=== PATIENT | female | born 1950 | race Caucasian/White ===

== ENCOUNTER 2023-04-02 10:53 | Emergency (ER) | payer MEDICARE, SELFPAY ==
[2023-04-02 11:03] VITALS: BP 151/70; PULSE 78; RESP 18; TEMP 36.6; O2SAT 95; BMI 26.4
--- NOTE | 2023-04-02 11:31 | CRLHL7_ITS ---
For Patients: As a result of the 21st Century Cures Act, medical imaging exams and procedure reports are released immediately into your electronic medical record. You may view this report before your referring provider. If you have questions, please contact your health care provider. INDICATION: Right-sided abdominal pain COMPARISON: None TECHNIQUE: CT examination of the abdomen and pelvis was performed following the uneventful intravenous administration of 59 cc of Isovue 370. Thin section axial images were obtained from the lung bases through the pubic symphysis. Oral contrast was not administered. Please note that all CT scans at this facility use dose modulation, iterative reconstruction, and/or weight-based dosing when appropriate to reduce radiation dose to as low as reasonably achievable. FINDINGS: LUNG BASES: Scant linear opacities consistent with atelectasis. Heart size is normalat the lung bases LIVER/BILIARY SYSTEM:The liver is normal in size and configuration. There is no focal mass and there is no intra- or extra hepatic biliary ductal dilatation.Surgically absent gallbladder ADRENALS: Normal KIDNEYS, URETERS and BLADDER:Right renal cyst. Kidneys are otherwise unremarkable. No obstructive uropathy. The bladder appears normal SPLEEN:Surgically absent spleen PANCREAS: Low-density 1 centimeter lesion involving the junction of the pancreatic body and tail. These lesions usually prove to be benign. In general, these are best evaluated by multiphase MRI. RETROPERITONEUM and MESENTERY: There is no mass, adenopathy or aortic aneurysm. GASTROINTESTINAL SYSTEM: There is no evidence of diverticulitis, colitis, mechanical obstruction, or appendicitis. The small bowel as visualized appears normal.Fecal retention. Diverticulosis. No acute appearing GI finding PELVIS: No mass, adenopathy or free fluid. OSSEOUS STRUCTURES and ABDOMINAL WALL: Degenerative changes. No acute appearing osseous finding. No significant abdominal wall defect. OTHER: No free fluid or free air. IMPRESSION: 1. There is no specific visible cause for right-sided abdominal pain. 2. 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 3. There is a low-density 1 centimeter lesion involving the junction of the pancreatic body and tail. These are generally best evaluated and stratified for follow-up by MRI. 4. Other incidental nonacute appearing findings as above Please note that all CT scans at this facility use dose modulation, iterative reconstruction, and/or weight-based dosing when appropriate to reduce radiation dose to as low as reasonably achievable. Dictated by Candelario Miles MD @ 04/02/2023 2:03:56 PM (Electronically Signed)
--- NOTE | 2023-04-02 11:33 | ED.ABDPAIN ---
HPI - Abdominal Pain General Chief Complaint: Abdominal Pain Stated Complaint: Lower R abdominal pain Time Seen by Provider: 04/02/23 11:21 History of Present Illness HPI narrative: This 72-year-old female has been having intermittent abdominal pain that started more than a couple weeks ago. Her pain is become more constant recently. She has had her spleen, gallbladder, and appendix removed in 1985. She reports pain in the right abdomen. She is able to take food and drink without any increased symptoms. She has not had any nausea, vomiting, or diarrhea except for 1 episode of small emesis about 5 days ago. She does not report any fevers. Related Data Home Medications Medication Instructions Recorded Confirmed alendronate 70 mg tablet mg PO 04/02/23 Allergies Allergy/AdvReac Type Severity Reaction Status Date / Time No Known Drug Allergies Allergy Verified 04/02/23 11:03 Review of Systems Status of ROS Reports: 10 or more systems reviewed and unremarkable except as noted in History and below Narrative Constitutional: No fevers, no weight gain or loss. Eyes: No discharge. No vision changes. HENT: No congestion, no sore throat, no ear pain. Cardiovascular: No chest pain, no palpitations. Respiratory: No shortness of breath, no wheezes, no cough. Gastrointestinal: Right-sided abdominal pain as described above. Genitourinary: No dysuria, no hematuria. Musculoskeletal: Normal range of motion. Skin: No rashes, no pruritis. Neurological: No dizziness, weakness, sensory change, speech change. Endo/Heme/Allergies: No bruising or bleeding. No polydipsia. Pysch: no suicidality, no anxiety, no insomnia. All other systems reviewed and are negative. [facility] Social History Smoking Status: Never smoker Do you use any of these nicotine containing products: None Second hand tobacco smoke exposure: No How often do you have a drink containing alcohol: monthly or less How many standard drinks containing alcohol do you have on a typical day: 1 or 2 How often do you have six or more drinks on one occasion: Never AUDIT-C Alcohol total score: 1 Non-prescribed substance use: denies use service: No Exam Narrative: Exam Narrative: Constitutional: Well-developed, well-nourished, no acute distress. HEENT: Normocephalic, atraumatic. Neck: Normal range of motion. Nontender. Supple. Heart: Regular. No murmurs. Normal rate. Intact distal pulses. Lungs: Clear to auscultation. No chest discomfort. No wheezes, rhonchi, or rales. Abdomen: Decreased bowel sounds. Tenderness in the right abdomen. No rebound tenderness. Genitalia: Deferred. Back: No midline tenderness. Normal range of motion. Extremities: Normal range of motion. No injury. Skin: Intact. No rash. Warm. No erythema or pallor. Neurologic: No altered sensation. No weakness. Alert and oriented. Psychiatric: No suicidality. No anxiety or depression. No insomnia. Nursing notes and vitals signs are reviewed. Const: Vital Signs, click to edit/add: Vital Signs - 24 hr 04/02/23 11:03 04/02/23 14:27 Temperature 98 F Pulse Rate 65 Pulse Rate [Pulse Oximeter] 78 Respiratory Rate 18 18 Blood Pressure 122/63 Blood Pressure [Le ft Upper Arm] 151/70 H Pulse Oximetry 95 96 Oxygen Delivery Me thod Room Air Room Air Course Vital Signs Vital signs: Initial Vital Signs Temperature 98 F 04/02/23 11:03 Temperature Source Temporal Artery Scan 04/02/23 11:03 Pulse Rate 78 04/02/23 11:03 Pulse Rhythm Regular 04/02/23 11:03 Respiratory Rate 18 04/02/23 11:03 Blood Pressure 151/70 H 04/02/23 11:03 Blood Pressure Mean 97 04/02/23 11:03 Blood Pressure Position Supine 04/02/23 11:03 Pulse Oximetry 95 04/02/23 11:03 Oxygen Delivery Method Room Air 04/02/23 11:03 Vital Signs Temperature 98 F 04/02/23 11:03 Pulse Rate 78 04/02/23 11:03 Respiratory Rate 18 04/02/23 11:03 Blood Pressure 151/70 H 04/02/23 11:03 Pulse Oximetry 95 04/02/23 11:03 Oxygen Delivery Method Room Air 04/02/23 11:03 Temperature 98 F 04/02/23 11:03 Pulse Rate 65 04/02/23 14:27 Respiratory Rate 18 04/02/23 14:27 Blood Pressure 122/63 04/02/23 14:27 Pulse Oximetry 96 04/02/23 14:27 Oxygen Delivery Method Room Air 04/02/23 14:27 MDM - Abdominal Pain MDM Narrative Medical decision making narrative: This patient comes in with right-sided abdominal pain that is been intermittent and now more recently constant. An IV was established and labs are acquired. These returned with normal results. CT imaging of the abdomen and pelvis with IV contrast also shows no acute findings other than some fecal retention which happens to be in the right side of the abdomen where she is describing her symptoms. These findings are related to the patient and she is encouraged to use [id number] medicines to promote movement of her bowels. She is reassured with these results and is okay to be discharged home. Lab Data Labs: Lab Results 04/02/23 04/02/23 Range/Units 11:42 12:59 WBC 8.57 (4.50-11.00) K/uL RBC 4.38 (4.00-5.20) m/uL Hgb 14.9 (12.0-16.0) gm/dL Hct 40.9 (33.0-51.0) % MCV 93 (80-100) fL MCH 34 (26-34) pg MCHC 36 (32-36) gm/dL RDW Coeff of Patricia 11.6 (11.5-15.5) % Plt Count 492 H (140-440) K/uL Neut % (Auto) 64.9 (42.0-72.0) % Lymph % (Auto) 21.4 (20-44) % [place] % (Auto) 12.3 H (0.0-11.0) % Eos % (Auto) 0.6 (0.0-7.0) % Baso % (Auto) 0.7 (0.0-3.0) % Neut # (Auto) 5.57 (1.7-7.0) K/uL Lymph # (Auto) 1.83 (0.90-2.90) K/uL [place] # (Auto) 1.10 H (0.00-0.90) K/UL Eos # (Auto) 0.05 (0.00-0.50) K/uL Baso # (Auto) 0.06 (0.00-0.30) K/uL Abs Immat Gran (auto) 0.01 (0.00-0.30) K/uL Imm/Tot Granulo (auto) 0.1 % Sodium 138 (135-149) mmol/L Potassium 4.1 (3.6-5.1) mmol/L Chloride 102 (96-114) mmol/L Carbon Dioxide 25 (20-32) mmol/L Anion Gap 11 (7-15) mEq/L BUN 17 (7-30) mg/dL Creatinine 0.6 (0.5-1.5) mg/dL Estimated Creat Clear 45.73 Estimated GFR 97 ml/min Glucose 122 H (60-115) mg/dL Lactate 0.9 (0.5-1.9) mmol/L Calcium 9.6 (8.4-10.6) mg/dL Total Bilirubin 1.1 (0.1-1.5) mg/dL Direct Bilirubin 0.0 (0.0-0.5) mg/dL AST 39 H (12-35) U/L ALT 21 (4-35) U/L Alkaline Phosphatase 45 (40-150) U/L C-Reactive Protein < 0.5 L (0.5-1.0) mg/dL Total Protein 7.4 (6.0-8.3) g/dL Albumin 4.5 (3.3-5.0) g/dL Urine Color Yellow (Yellow) Urine Appearance Clear (Clear) Urine pH 7.0 (5.0-8.5) Ur Specific [place] 1.020 (1.000-1.030) Urine Protein Negative (Negative) Urine Glucose (UA) Negative (Negative) Urine Ketones Negative (Negative) Urine Blood Negative (Negative) Urine Nitrite Negative (Negative) Urine Bilirubin Negative (Negative) Urine Urobilinogen 0.2 (0.2-1.0) Ur Leukocyte Esterase Negative (Negative) Urine RBC 0-2 (0-2) Urine WBC 0-2 (0-5) Ur Squamous Epith Cells None (None-Few) Urine Bacteria None (None) Discharge Plan Discharge Clinical Impression: Abdominal pain Patient Disposition: Home, Self-Care Condition: Stable Additional Instructions: Use [id number] meds for managing regular bowel movements. Follow up with MD or return if worsening symptoms occur. Prescriptions: No Action alendronate 70 mg tablet PO Follow Up/Referrals: Saniya Arzola DO [Primary Care Provider] - Stand Alone Forms[facility] Inst[facility]
[2023-04-02 11:53] LABS: Lactate* 0.9 mmol/L (0.5-1.9)
[2023-04-02 12:04] LABS: Basophils Absolute Auto 0.06 K/uL (0.00-0.30); Basophils Percent Auto 0.7 % (0.0-3.0); Eosinophils Absolute Auto 0.05 K/uL (0.00-0.50); Eosinophils Percent Auto 0.6 % (0.0-7.0); Hematocrit 40.9 % (33.0-51.0); Hemoglobin* 14.9 gm/dL (12.0-16.0); Immature Granulocytes Abs Auto 0.01 K/uL (0.00-0.30); Immature Granulocytes Pct Auto 0.1 %; Lymphocytes Absolute Auto 1.83 K/uL (0.90-2.90); Lymphocytes Percent Auto 21.4 % (20-44); Mean Corpuscular HGB Conc 36 gm/dL (32-36); Mean Corpuscular Hemoglobin 34 pg (26-34); Mean Corpuscular Volume 93 fL (80-100); Monocytes Percent Auto 12.3 % (0.0-11.0); Neutrophils Absolute Auto 5.57 K/uL (1.7-7.0); Neutrophils Percent Auto 64.9 % (42.0-72.0); Platelet Count* 492 K/uL (140-440); RDW Coefficient of Variation % 11.6 % (11.5-15.5); Red Blood Count 4.38 m/uL (4.00-5.20); White Blood Count* 8.57 K/uL (4.50-11.00)
[2023-04-02 12:09] LABS: Slide Review Reflex No
[2023-04-02 12:23] LABS: Chloride* 102 mmol/L (96-114); Potassium* 4.1 mmol/L (3.6-5.1); Sodium* 138 mmol/L (135-149)
[2023-04-02 12:24] LABS: Albumin* 4.5 g/dL (3.3-5.0)
[2023-04-02 12:26] LABS: Anion Gap 11 mEq/L (7-15); Blood Urea Nitrogen* 17 mg/dL (7-30); Carbon Dioxide* 25 mmol/L (20-32); Creatinine* 0.6 mg/dL (0.5-1.5); Est. Creatinine Clearance* 45.73; Estimated Glomerular Filt Rate 97 ml/min
[2023-04-02 12:27] LABS: Alanine Aminotransferase* 21 U/L (4-35); Alkaline Phosphatase* 45 U/L (40-150); Aspartate Amino Transferase* 39 U/L (12-35); Bilirubin Total* 1.1 mg/dL (0.1-1.5); Calcium* 9.6 mg/dL (8.4-10.6); Glucose* 122 mg/dL (60-115); Total Protein* 7.4 g/dL (6.0-8.3)
[2023-04-02 12:35] LABS: C Reactive Protein* < 0.5 mg/dL (0.5-1.0)
[2023-04-02 13:09] LABS: Appearance Urine Clear (Clear); Bilirubin Urine Negative (Negative); Blood Urine Negative (Negative); Color Urine Yellow (Yellow); Glucose Urine Negative (Negative); Ketones Urine Negative (Negative); Leukocyte Esterase Urine Negative (Negative); Nitrite Urine Negative (Negative); Protein Urine Negative (Negative); Urobilinogen Urine 0.2 (0.2-1.0)
[2023-04-02 13:18] LABS: RBC Urine 0-2 (0-2); WBC Urine 0-2 (0-5)
[2023-04-02 14:27] VITALS: BP 122/63; PULSE 65; RESP 18; O2SAT 96
== END 2023-04-02 14:48 | disposition home or self-care (01) ==
PROVIDERS: Emergency Provider Emergency Medicine Emergency Medical Services; PCP Family Medicine
DX: R10.9 Unspecified abdominal pain (principal)
CPT/HCPCS: 36415; 74177; 80048; 80076; 81001; 83605; 85025; 86140; 99284; 99285; Q9967

== ENCOUNTER 2024-01-21 10:30 | Outpatient (RCR) | payer MEDICARE, SELFPAY | END 2024-03-22 15:24 | disposition home or self-care (01) | PROVIDERS: PCP Family Medicine; Visit Provider Family Medicine | DX: M67.912 Unspecified disorder of synovium and tendon, left shoulder (principal); M25.612 Stiffness of left shoulder, not elsewhere classified; Z51.89 Encounter for other specified aftercare; M75.102 Unspecified rotator cuff tear or rupture of left shoulder, not specified as traumatic | CPT/HCPCS: 97110; 97161 ==

== ENCOUNTER 2024-02-24 07:51 | Day surgery (SDC) | payer MEDICARE, SELFPAY ==
[2024-02-24] VITALS (15 sets, daily range): BP systolic 110–146; BP diastolic 61–78; PULSE 66–91; RESP 16–23; TEMP 36.1–36.9; O2SAT 92–96; BMI 24.8
--- OUTSIDE RECORDS SUMMARY | 2024-02-24 07:54 | XMS_ITS | Clinical Summary ---
Author Organization [facility] Address [place], [place] [address] Care Team Providers Care Office Spec Name Role Phone Saniya Arzola Primary Care Provider [phone] Allergies Active Allergy Reactions Criticality Noted Date Comments Antihistamines Dizziness 06/06/2008 Medications Medication Sig Dispensed Refills Start Date End Date Status CENTRUM SILVER TAB take 1 tablet by oral route once daily 0 01/10/2008 Active FISH OIL 1,200 MG-144 MG-216 MG CAP Once daily 0 01/10/2008 Active Grape Seed 100 mg capsule Take 1 capsule by mouth. Takes 3 daily 0 01/24/2011 Active calcium citrate-vitamin d 315 mg-200 unit (CITRACAL + D) 315-200 mg-unit tablet Take 1 tablet by mouth 2 times daily with meals. 0 01/24/2011 Active famotidine (PEPCID) 20 mg tablet Take 1 tablet by mouth once daily. 0 04/17/2020 Active alendronate (FOSAMAX) 70 mg tabletIndications:Oste oporosis, unspecified osteoporosis type, unspecified pathological fracture presence Take 1 Tablet (70 mg) by mouth once a week in the morning. Take on empty stomach with full glass of water. Do not lie down for 1 hr. 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 No further work up needed. Can take aspirin 81mg if no significant GI bleeding RF's Family history of stroke 02/28/2014 Overview: Sister hemorrhagic stroke age 62 Personal history of colonic polyps 05/05/2012 Overview: Colonoscopy 04/2012 normal repeat in 5 years Colonoscopy 06/2017 normal repeat in 5 years Colonoscopy 09/2022 angiodyplasia, no polyps, repeat in 7-10 years GERD (gastroesophageal reflux disease) 1 Overview: EGD 02/2011 reflux Asplenia 06/06/2008 Hereditary spherocytosis 01/01/2007 Urinary tract infection, site not specified 12/05 Osteopenia Overview: 2007 Dexa 04/2017 osteopenia, repeat 3-5yrs Resolved Problems Problem Noted Date Diagnosed Date Resolved Date Unspecified diseases of bloo d and blood-forming organs 01/01/2007 01/24/2011 Encounters Date Type Department Care Team Description 02/17/2024 11:15 AM CDT Office Visit [facility] [address] Saniya Arzola, Preoperative Exam (02/24/24) 02/17/2024 Travel 01/16/2024 Orders Only [facility] [place] [address] Saniya Arzola, <No scans attached> 01/14/2024 11:45 AM CDT Ancillary Procedure [facility] [address] 01/14/2024 Travel 12/23/2023 10:15 AM CDT Ancillary Procedure [facility] [address] 12/23/2023 9:10 AM CDT Office Visit [facility] [address] Saniya Arzola, Shoulder Pain/problem (Left shoulder pain 5 days); Finger Pain/problem (Left thumb and 1st finger numbness on tip, 2 weeks); Derm Problem (Mole on left shoulder irritation from bra strap) 12/23/2023 Travel from Last 3 Months Immunizations Name Administration Dates Next Due COVID-19 vaccine ([employer] 30mcg/0.3mL) PF, MDV 04/22/2021 Influenza, IIV3 (Age >=3 years) 05/28/2005 Influenza, IIV4 04/07/2017,04/08/2016 Influenza, Inactivated AIIV4 (Age 65+ Years) Preserv Free 03/24/2023,04/23/2022,04/22/2021,04/17 Influenza, Inactivated IIV3 (Age 65+ Years) Preserv Free 04/13/2019,04/07/2018 Meningococcal Vaccine (Menomune) 04/01/2013 Pneumococcal Poly,23-Valent (Pneumovax) 04/07/2018,07/21/1997 Pneumococcal conj 13-Valent (Prevnar 13) 04/01/2013,02/04/2013 Td (Age >=7 Years) 07/21/1997 Td, Preservative Free (age >= 7 Years) 7 Tdap 03/11/2007 Zoster (Shingrix-RZV, recombinant) 07/02/2020, Zoster (Zostavax-ZVL, live) 02/04/2013 Family History Medical History Relation Name Comments Arthritis Father gout Diabetes Father Cancer-breast Maternal Aunt Other Mother migraine Stroke Sister 1 non smoker, no diabetes Asthma Sister 2 Cancer-breast Sister 2 Other Sister 2 Migraine Cancer-ovarian No Family History Relation Name Status Comments Father Alive Maternal Aunt Mother Alive Sister 1 Alive Sister 2 Alive Sister 3 Alive Sister 4 Alive Sister 5 Alive Social History Tobacco Use Types Packs/Day Years Used Date Smoking Tobacco: Never Smokeless Tobacco: Never Tobacco Cessation:Counseling Given: Yes Alcohol Use Standard Drinks/Week Comments Yes 6 (1 standard drink = 0.6 oz pur e alcohol) PHQ-2 Answer Date Recorded PHQ-2 TOTAL SCORE 0 05/07/2023 Social Connections Answer Date Recorded Frequency of Communication with Friends and Fami ly 0 05/07/2023 Alcohol Use Answer Date Recorded How often do you have a drink containing alcohol ? 3 04/23/2022 How many drinks containing a lcohol do you have on a typical day when you are drinking? 0 04/23/2022 How often do you have five or more drinks on one occasion? 0 04/23/2022 Financial Resource Strain Answer Date R ecorded Difficulty of Paying Living Expenses 3 05/07/2023 Difficulty of Paying Living Expenses Not on file 05/07/2023 Food Insecurity Answer Date Recorded Worried About Running Out of Food in the Last Ye ar 1 05/07/2023 Transportation Needs Answer Date Record ed Lack of Transportation (Medical) 1 05/07/2023 Housing Stability Answer Date Recorded Unable to Pay for Housing in the Last Year 1 05/07/2023 Sex and Gender Information Value Date Recorded Sex Assigned at Not on file Gender Identity Not on file Sexual Orientation Not on file Obstetrics History Para Term AB IAB SAB Ectopic Multiple Livin g Live Births 0 0 0 0 0 0 0 0 0 0 Last Filed Vital Signs Vital Sign Reading Time Taken Comments Blood Pressure 118/73 02/17/2024 11:18 AM CDT Pulse 77 02/17/2024 11:18 AM CDT Temperature 37.1 ??C (98.8 ??F) 03/05/2015 1:34 PM CD T Respiratory Rate 16 09/04/2022 10:11 AM COATING MIXER SUPERVISOR Oxygen Saturation 96% 02/17/2024 11:18 AM CDT Inhaled Oxygen Concentration - - Weight 55.8 kg (123 lb) 02/17/2024 11:18 AM CDT Height 151 cm (4' 11.45) 02/17/2024 11:18 AM CD T Body Mass Index 24.47 02/17/2024 11:18 AM CDT Plan of Treatment Upcoming Encounters Date Type Department Care Team (Late st Contact Info) Description 05/09/2024 10:25 AM COATING MIXER SUPERVISOR Office Visit [facility] [address] [place] [address] Saniya Arzola DO [address] [place] [address] Health Maintenance Due Date Last Done Comments COVID-19 vaccine series ( season) 2023 04/28/2022, 04/22/2021, 09/29/2020, Additional history exists Influenza for age 65+ 03/06/2024 03/24/2023 , 04/23/2022, 04/22/2021, Additional history exists Depression screening for age 12+ 05/07/2024 05/07/2023, 04/23/2022, 04/23/2022, Additional history exists Mammogram for age 45-75 05/07/2024 05/07/20 23, 04/23/2022, 04/22/2021, Additional history exists Medicare Wellness for age 65+ 05/07/2024, 04/23/2022, 04/22/2021, Additional history exists BMI (ht and wt on same day) for age 18+ 02/16/2025 02/17/2024, 12/23/2023, 05/07/2023, Additional history exists Tetanus booster 04/14/2027 04/14/2017, 12/2006, 07/21/1997 Lipids for age 45-75 05/07/2028 05/07/2023, 04/07/2018, 03/21/2015, Additional history exists Colonoscopy through age 75 09/11/202909/11, 09/04/2022, 06/12/2017, Additional history exists Tdap Completed 03/11/2007 Hepatitis C screening for ag e 18-79 Completed 03/15/2014 Pneumococcal series for age 65+ Completed 04/07/2018, 04/01/2013, 02/04/2013, Additional history exists Zoster (shingles) series for age 50+ Completed 07/02/2020, 05/12/2020, 02/04/2013 DEXA/DXA scan for age 65+ Completed 2021, 04/09/2017, 02/12/2012, Additional history exists Procedures Procedure Name Priority Date/Time Associated Diagnosis Comments MR SHOULDER LEFT WO Routine 01/14/2024 1 2:14 PM CDT Disorder of left rotator cuff Acute pain of left shoulder Decreased range of motion of left shoulder XR SHOULDER 3 VIEWS LEFT Routine 12/23/2023 10:22 AM CDT Disorder of left rotator cuff Acute pain of left shoulder Decreased range of motion of left shoulder LIPID PANEL W REFLEX MEASURED LDL Routine 05/07/2023 12:08 PM CDT Lipid screening XR MAMMO FABIOLA BILAT SCREEN Routine 05/07/2023 9:51 AM CDT Visit for screening mammogram COLONOSCOPY 09/04/2022 8:50 AM COATING MIXER SUPERVISOR XR DXA BONE DENSITY 2 SITES AXIAL Routine 04/28/2022 10:45 AM CDT Osteopenia, unspecified location Other specified disorders of bone density and structure, multiple sites ANTI HCV Routine 03/15/2014 7:25 AM CDT Need for hepatitis C screening test from Last 3 Months or Most Recently Relevant to Health Maintenance Results * MR SHOULDER LEFT WO (01/14/2024 12:14 PM CDT) Anatomical Region Laterality Modality SHOULDER L Magnetic Resonan ce 01/15/2024 8:36 AM CDT Impressions 01/15/2024 8:36 AM CDT 1. Extensive full-thickness tear of rotator interval and supraspinatus extending to the anterior margin of the infraspinatus which has partial tearing. Prominent tendinosis infraspinatus. Prominent tendinosis and irregular high-grade partial tearing subscapularis. 2. Prominent hypertrophic arthrosis AC joint. 3. Avulsion of the biceps anchor and distal retraction from the field of view. 4. Mild glenohumeral osteoarthritis. 5. Small effusion with synovitis between the subacromial/subdeltoid bursa and the glenohumeral joint communicating across the rotator cuff tear. Dictated by Rafat Ordaz MD @ 01/15/2024 8:36:53 AM (Electronically Signed) Narrative 01/15/2024 8:36 AM CDT For Patients: ??As a result of the Century Cures Act, medical imaging exams and procedure reports are released immediately into your electronic medical record. ??You may view this report before your referring provider. ??If you have questions, please contact your health care provider. INDICATION: Decreased range of motion. Acute pain. Rotator cuff disorder suspected. COMPARISON: Plain film 23 December 2023. TECHNIQUE: Axial T1 and PD fat-sat, coronal PD, T2 and PD fat sat and sagittal T2 and T2 fat-sat left shoulder sequences. FINDINGS: Rotator cuff: Full-thickness tear of the supraspinatus retracted proximal from the glenoid with grade 2 to nearly grade 2 muscle atrophy. Full-thickness tearing through the rotator interval. Prominent patchy tendinosis in the infraspinatus with some irregular partial tearing at the anterior margin. No high-grade partial or full-thickness tear. Intact teres minor. Prominent tendinosis and irregular degenerative tearing tapers small caliber indistinct distal subscapularis. Grade 1 to nearly grade 2 muscle atrophy superior bundle. Infraspinatus and teres minor are maintained. Acromioclavicular joint and coracoacromial arch: Curved type 2 gracile acromion. Slight superior subluxation humeral head narrows the acromiohumeral distance to 3 mm. Small volume of fluid and some synovitis in the bursa. Prominent hypertrophic arthrosis AC joint. Edematous hypertrophied capsule and osteophytes nearly in contact the superior humeral head margin. No clavicular dislocation or fracture. Subcoracoid interval narrow at 2-3 mm with slight anterior subluxation of the humeral head. Biceps labral complex: Intermediate signal indistinct frayed margins of superior labrum with avulsion of the biceps anchor and distal retraction of biceps from the field of view. Small amount of fluid in the tendon sheath. Posterior, inferior and anterior labrum looks normal for age. Glenohumeral joint: Superior and anterior humeral head subluxation. Grade 3 to potentially grade 4 cartilage loss superior humeral head with relatively maintained cartilage and inferior half. Mild grade 2 chondromalacia upper glenoid. Small joint effusion with minor strandy intermediate signal synovitis. No intra-articular body or capsulitis. Bones and soft tissues: Deltoid bulk and signal is normal. No fracture or bone lesion with neutral glenoid version. No significant finding in the visualized axilla. Procedure Note Rafat Ordaz MD - 01/15/2024 For Patients: As a result of the Century Cures Act, medical imagingexams and procedure reports are released immediately into your electronicmedical record. You may view this report before your referring provider.If you have questions, please contact your health care provider. INDICATION: Decreased range of motion. Acute pain. Rotator cuff disorder suspected. COMPARISON: Plain film 23 December 2023. TECHNIQUE: Axial T1 and PD fat-sat, coronal PD, T2 and PD fat sat and sagittal T2 andT2 fat-sat left shoulder sequences. FINDINGS: Rotator cuff: Full-thickness tear of the supraspinatus retracted proximalfrom the glenoid with grade 2 to nearly grade 2 muscle atrophy.Full-thickness tearing through the rotator interval. Prominent patchytendinosis in the infraspinatus with some irregular partial tearing at theanterior margin. No high-grade partial or full-thickness tear. Intactteres minor. Prominent tendinosis and irregular degenerative tearingtapers small caliber indistinct distal subscapularis. Grade 1 to nearlygrade 2 muscle atrophy superior bundle. Infraspinatus and teres minor aremaintained. Acromioclavicular joint and coracoacromial arch: Curved type 2 gracileacromion. Slight superior subluxation humeral head narrows theacromiohumeral distance to 3 mm. Small volume of fluid and some synovitisin the bursa. Prominent hypertrophic arthrosis AC joint. Edematoushypertrophied capsule and osteophytes nearly in contact the superiorhumeral head margin. No clavicular dislocation or fracture. Subcoracoidinterval narrow at 2-3 mm with slight anterior subluxation of the humeralhead. Biceps labral complex: Intermediate signal indistinct frayed margins ofsuperior labrum with avulsion of the biceps anchor and distal retractionof biceps from the field of view. Small amount of fluid in the tendonsheath. Posterior, inferior and anterior labrum looks normal for age. Glenohumeral joint: Superior and anterior humeral head subluxation. Grade3 to potentially grade 4 cartilage loss superior humeral head withrelatively maintained cartilage and inferior half. Mild grade 2chondromalacia upper glenoid. Small joint effusion with minor strandyintermediate signal synovitis. No intra-articular body or capsulitis. Bones and soft tissues: Deltoid bulk and signal is normal. No fracture orbone lesion with neutral glenoid version. No significant finding in thevisualized axilla. IMPRESSION: 1. Extensive full-thickness tear of rotator interval and supraspinatusextending to the anterior margin of the infraspinatus which has partialtearing. Prominent tendinosis infraspinatus. Prominent tendinosis andirregular high-grade partial tearing subscapularis. 2. Prominent hypertrophic arthrosis AC joint. 3. Avulsion of the biceps anchor and distal retraction from the field ofview. 4. Mild glenohumeral osteoarthritis. 5. Small effusion with synovitis between the subacromial/subdeltoid bursaand the glenohumeral joint communicating across the rotator cuff tear. Dictated by Rafat Ordaz MD @ 01/15/2024 8:36:53 AM (Electronically Signed) Saniya Arzola DO MR * XR SHOULDER 3 VIEWS LEFT (12/23/2023 10:22 AM CDT) Anatomical Region Laterality Modality SHOULDERS, SHOULDER L Computed R adiography 12/23/2023 10:4 3 AM CDT Narrative 12/23/2023 10:43 AM CDT For Patients: ??As a result of the Cures Act, medical imaging exams and procedure reports are released immediately into your electronic medical record. ??You may view this report before your referring provider. ??If you have questions, please contact your health care provider. Indication: Left shoulder pain. Technique: Left shoulder 3 views. Comparison: None. Findings: Narrowing and spurring at the acromioclavicular joint with subchondral cystic change and synovial hypertrophy with adjacent osseous densities. Degenerative cystic change within the greater tuberosity. Mild spurring at the glenohumeral compartment. Vascular calcifications. Calcified left hilar lymph node. 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 Dictated by Armin Oliver MD @ 12/23/2023 10:43:26 AM (Electronically Signed) Procedure Note Armin Oliver MD - 12/23/2023 For Patients: As a result of the Cures Act, medical imagingexams and procedure reports are released immediately into your electronicmedical record. You may view this report before your referring provider.If you have questions, please contact your health care provider. Indication: Left shoulder pain. Technique: Left shoulder 3 views. Comparison: None. Findings: Narrowing and spurring at the acromioclavicular joint with subchondralcystic change and synovial hypertrophy with adjacent osseous densities.Degenerative cystic change within the greater tuberosity. Mild spurring atthe glenohumeral compartment. Vascular calcifications. Calcified lefthilar lymph node. Impression: Moderately severe degenerative joint disease at the acromioclavicularjoint. Dictated by Armin Oliver MD @ 12/23/2023 10:43:26 AM (Electronically Signed) Saniya Arzola DO GENERAL IMAGING * (ABNORMAL) LIPID PANEL W REFLEX MEASURED LDL (05/07/2023 12:08 PM CDT) CHOLESTEROL,TOTAL 213(H) 100 - 199 mg/dL 05/07/2023 10:19 PM CDT [facility] Comment: Cholesterol, Total Reference Ranges Desirable <200 mg/dL Borderline 200-239 mg/dL High >=240 mg/dL TRIGLYCERIDES 94 <150 mg/dL 05/07/2023 10:19 PM CDT [facility] HDL CHOLESTEROL 121 >40 mg/dL 10:19 PM CDT [facility] NON-HDL CHOLESTEROL 92 <145 mg/dl 05/07/2023 10:19 PM CDT [facility] CHOL/HDL RATIO 1.76 <4.50 05/07/2023 10:19 PM CDT [facility] LDL CHOLESTEROL 73 <=130 mg/dL 05/07/2023 10:19 PM CDT [facility] VLDL CHOLESTEROL 19 <=30 mg/dL 05/07/2023 10:19 PM CDT [facility] PROVIDER ORDERED STATUS RANDOM 05/07/2023 10:19 PM CDT [facility] Blood BLOOD SPECIMEN / Unknown Venipuncture / Unknown 05/07/2023 12:08 PM CDT 05/07/2023 12:09 PM CDT Saniya Arzola DO CHEMISTRY [facility] [address] [place] [address], [place] * XR MAMMO FABIOLA BILAT SCREEN (05/07/2023 9:51 AM CDT) Anatomical Region Laterality Modality BREASTS, Breast Left, Breast Right Bilateral Mammography Impressions 05/08/2023 3:49 PM CDT ??There is no radiographic evidence for malignancy. ??Recommend annual mammograms. MAMMOGRAM ASSESSMENT: ??ACR 1 Negative PATIENTS: You will also receive a letter with your examination results in an easy to read format. ??If you have questions about your results, please contact your referring provider. Narrative 05/08/2023 3:49 PM CDT For Patients: As a result of the Cures Act, medical imaging exams and procedure reports are released immediately into your electronic medical record. You may view this report before your referring provider. If you have questions, please contact your health care provider. XR MAMMO FABIOLA BILAT SCREEN [[id number]] CLINICAL HISTORY: ??This is an asymptomatic 72 y.o. patient. INDICATION FOR EXAM: Mammogram Screening. TECHNIQUE: CC & MLO views were obtained. ??This study was evaluated with the assistance of Computer-Aided Detection. Breast Tomosynthesis was used in interpretation. COMPARISON FILM: Yes 04/23/22 [facility] 04/22/21 [facility] FINDINGS: ??The breasts are almost entirely fatty. There are no dominant masses, suspicious micro calcifications or areas of architectural distortion. Saniya Arzola DO MAMMO * COLONOSCOPY (09/04/2022 8:50 AM COATING MIXER SUPERVISOR) 09/04/2022 8:50 AM COATING MIXER SUPERVISOR Narrative Transcriptions Parish Barba MD - 09/04/2022 9:59 AM CST Patient Name: Izabel Oro Procedure Date: 09/04/2022 Gender: Female Date of : 1950 Admit Type: Outpatient Procedure: Colonoscopy Proceduralist: Parish Barba MD , Stephany Garg (Nurse), Shyann Villagran (Nurse) Indications/Pre-Op Diagnosis: High risk colon cancer surveillance:Personal history of colonic polyps, Last colonoscopy: June 2017 Medications: Fentanyl 100 micrograms IV, Midazolam 2 mgIV, The level of sedation administered wasmoderate Procedure Description: The patient had risks, benefits and alternatives explained to andgave informed consent. The patient had a stable cardiopulmonary status and judged an adequate candidate for conscious sedation. The endoscope [id number]-[id number] [id number] was passed through the anus andadvanced to the cecum, identified by appendiceal orifice and ileocecal valve.The colonoscopy was performed without difficulty. The patient toleratedthe procedure well. The quality of the bowel preparation was good. The ileocecal valve, appendiceal orifice, and rectum were photographed. Complications: No immediate complications. Estimated Blood Loss & Specimen: Estimated blood loss: none. Estimated blood loss: none. Specimen collected - None Findings: The perianal and digital rectal examinations were normal. A single small angiodysplastic lesion without bleeding was found inthe cecum. The exam was otherwise without abnormality on direct and retroflexion views. Impressions/Post-Op Diagnosis: - A single non-bleeding colonic angiodysplastic lesion. - The examination was otherwise normal on direct and retroflexionviews. - No specimens collected. Recommendation: - Patient has a contact number available for emergencies. The signsand symptoms of potential delayed complications were discussed with the patient. Return to normal activities tomorrow. Written discharge instructions were provided to the patient. - Resume previous diet. - Continue present medications. - Repeat colonoscopy in 7-10 years for surveillance. Moderate Sedation: A time out was performed before the procedure. Moderate (conscious) sedation was administered by the endoscopy nurse and supervised bythe endoscopist. The following parameters were monitored: oxygensaturation, heart rate, blood pressure, EKG, CO2, respiratory rate, adequacy of pulmonary ventilation and reponse to care. Please refer to the patient's medical record flowsheets and nursing notes for moderate sedation details. Total physician intraservice time was 21 minutes. Parish Barba MD 09/04/2022 9:59:39 AM This report has been signed electronically. Note Initiated On: 09/04/2022 8:50 AM Procedure Code(s): --- Professional --- 87989, Colonoscopy, flexible; diagnostic, including collection of specimen(s) bybrushing or washing, when performed (separateprocedure) Diagnosis Code(s): --- Professional --- Z86.010, Personal history of colonicpolyps K55.20, Angiodysplasia of colon without hemorrhage CPT copyright 2020 [employer]. All rights reserved. The codes documented in this report are preliminary and upon certified professional coder reviewmay be revised to meet current compliance requirements. Scope In: 9:33:26 AM Scope Withdrawal Time 0 hours 12 minutes 53 seconds Scope Out: 9:51:23 AM Parish Barba MD PROCEDURE ORD * (ABNORMAL) XR DXA BONE DENSITY 2 SITES AXIAL (04/28/2022 10:45 AM CDT) Anatomical Region Laterality Modality Spine, HIPS, HIPL, HIPR Other Impressions 05/01/2022 10:51 AM CDT Osteoporosis. RECOMMENDATIONS: The National Osteoporosis Foundation recommends pharmacologic treatment for patients with T-scores of -2.5 or less, patients with prior history of fragility fractures, or patients with 10-year probability of greater than 3% at hips or greater than 20% of suffering major osteoporotic fractures. Recommend continued optimization of calcium and vitamin D intake through dietary means and/or supplementation and regular exercise. Consider pharmacologic therapy for osteoporosis. Follow-up bone density reading in 2 years if therapy initiated to assess therapeutic efficacy. [facility] 05/01/2022 Narrative 05/01/2022 10:51 AM CDT For Patients: Results are automatically released to your [facility] ([place]) account once available, in compliance with federal regulations. This means that you may see your results before your provider has had a chance to review them. Please allow 2-3 business days for your provider to comment on the results. XR DXA Bone Mineral Density (BMD) EXAM LOCATION: [facility] [address] [address] PATIENT NAME: Izabel Oro DATE OF : 1950 EXAM DATE: 04/28/2022 REQUESTING PROVIDER: Saniya Arzola, DO GENDER AT : female HEIGHT: 4' 11.45 (04/23/2022) WEIGHT: ??117 lb (04/23/2022) MENOPAUSAL STATUS: Postmenopausal RACE/ETHNICITY: White RISK FACTORS: Height Loss (2 inches or more), Menopause < Age 40, Weight < 127 lbs. and White Race CURRENT MEDICATION FOR BONE LOSS: NONE INDICATION: Follow-up of existing osteopenia COMPARISON DATE(S): 2017 DXA scans are compared to prior studies for a patient only when the two (or more) studies were performed on the same scanner. It is not possible to compare data generated on one scanner to data from another because there are not standards in DXA equipment. This applies even if the two scanners are made by the same gallery director. PROCEDURE: Dual-energy x-ray absorptiometry performed with routine technique. Reporting is completed in the form of a T-score. The T-score represents the standard deviation from peak bone mass based on young healthy adult. A Z-score is used for diagnosis in premenopausal women, and for men under the age of 50. FINDINGS: RESULT LUMBAR SPINE L1 - L4 BMD: 0.966 g/cm2 T-Score: - 1.8 Z-Score: + 0.3 Change from prior in 2011: ??Decrease 9.1%. RESULTS FEMUR Left femoral neck BMD: 0.717 g/cm2 T-Score: - 2.3 Z-Score: - 0.4 Change from prior in 2017: ??Decrease 3.6%. Right femoral neck BMD: 0.655 g/cm2 T-Score: - 2.8 Z-Score: - 0.8 Change from prior in 2017: ??Decrease 9.0%. Left hip BMD: 0.727 g/cm2 T-Score: - 2.2 Z-Score: - 0.5 Change from prior in 2017: ??Decrease 7.3%. Right hip BMD: 0.733 g/cm2 T-Score: - 2.2 Z-Score: - 0.4 Change from prior in 2017: ??Decrease 10.9%. WHO criteria: Normal: T-score at or above -1 SD Osteopenia: T-score between -1.1 and -2.4 SD Osteoporosis: T-score at or below -2.5 SD FRAX RISK CALCULATION (USED FOR OSTEOPENIA ONLY): 10-year probability of major osteoporotic fracture: 16.3%. 10-year probability of hip fracture: 4.9%. Saniya Arzola DO DEXA * ANTI HCV [63493.2] (03/15/2014 7:25 AM CDT) HEPATITIS C ANTIBODY Non-Reacti ve Non-Reacti ve 03/15/2014 3:39 PM CDT [facility] [place] [facility] Blood specimen (specimen) BLOOD SPECIMEN / Unknown Venipuncture / Unknown 03/15/2014 7:25 AM CDT 03/15/2014 7:25 AM CDT Narrative [facility] - 03/15/2014 3:39 PM CDT Antibodies to HCV not detected; does not exclude the possibility of exposure to HCV. Saniya Arzola DO SEND OUTS [facility] [address] [place] [address], [place] from Last 3 Months or Most Recently Relevant to Health Maintenance Advance Directives Documents on File Type Date Recorded Patient Domestic Technician Expl anation Healthcare Directive 04/14/2019 1:39 PM 1 Care Teams Office Spec Relationship Specialty Start Date End Date Saniya Arzola DO [address] [place] [address] PCP - General Family Practice 07/04/13
[2024-02-24] MEDS: SODIUM CHLORIDE 0.9 % (FLUSH) 10 ML SYRINGE IVF (08:30)
[2024-02-24] MEDS: LACTATED RINGERS 1000 ML 1,000 ML 100 ML IV ×2 (08:30→11:09)
--- NOTE | 2024-02-24 08:52 | W.PM.H&PU ---
History & Physical Update History & Physical Update H&P Reviewed and patient assessed: No changes noted
--- NOTE | 2024-02-24 08:52 | PM.ORPRC ---
Procedure Note Date of procedure: 02/24/24 Procedure: PREOPERATIVE DIAGNOSES: 1. Left shoulder rotator cuff tear. 2. Left shoulder acromioclavicular joint osteoarthritis 3. Left shoulder glenohumeral osteoarthritis POSTOPERATIVE DIAGNOSES: 1. Left shoulder shoulder rotator cuff tear - subscapularis /supraspinatus / infraspinatus 2. Left shoulder acromioclavicular joint osteoarthritis 3. Left shoulder glenohumeral osteoarthritis NAME OF OPERATION: 1. Left shoulder arthroscopic rotator cuff repair. -Add 22-Modifier for difficulty secondary to massive, retracted rotator cuff tear 2. Left shoulder arthroscopic extensive debridement of glenohumeral joint and subacromial space 3. Left shoulder arthroscopic distal clavicle excision SURGEON: Kirill Sarmiento MD TECHNICAL INSTRUCTOR COURSE DEVELOPER: Carmelo Campbell P.A.-C. An talent acquisition assistant was critical for this case to aide in patient positioning, suture manipulation, arm positioning, instrument positioning, and closure. ANESTHESIA: General plus preoperative supraclavicular block. IMPLANTS: Arthrex 2.6 FiberTak suture anchor, double loaded; Arthrex 2.6 mm FiberTak suture anchor; Arthrex 4.75 mm BioComposite SwiveLock anchor; Arthrex 5.5 mm BioComposite SwiveLock anchor COMPLICATIONS: None ESTIMATED BLOOD LOSS: 10 mL INDICATIONS: The patient is a pleasant, 73-year-old female who has experienced left shoulder pain and weakness that have been increasing in recent time. Physical exam and imaging were consistent with a retracted, full-thickness rotator cuff tear. Given these findings, as well as the weakness and pain, and failure to improve with nonoperative management, recommendation was made for surgery. FINDINGS: Exam under anesthesia revealed stable shoulder with full range of motion. The diagnostic arthroscopy revealed diffuse grade 3 chondromalacia of the glenoid and humeral head with degenerative tearing of the anterior, superior, and posterior labrum. Chronic complete tear of the long head of the biceps tendon. Full-thickness tearing of the superior aspect of subscapularis tendon. Complete, full-thickness, tear of the supraspinatus that was retracted medial to the glenoid. Full-thickness tear of the anterior infraspinatus. No loose bodies were identified within the pouch or subscapularis recess. Moderate degenerative changes of the acromioclavicular joint. PROCEDURE: Following a thorough discussion of risks, benefits, and alternatives, consent was obtained and the operative shoulder was marked. A supraclavicular nerve block was performed by anesthesia staff in preop holding. The patient was brought to the operating room and placed supine on the operating table. Induction of anesthesia was completed, and patient was given IV Ancef preoperatively for prophylaxis. A surgical time-out was performed confirming patient identity, surgical site, and procedure. Patient was placed into the beach chair position. Head was placed in padded movable bulkhead installer in neutral alignment, and all bony prominences were well padded. The operative shoulder and upper extremity were prepped and draped in the appropriate sterile fashion using ChloraPrep. The glenohumeral joint was injected with 40 mL of normal saline using and 18g spinal needle from a posterior approach. Posterior portal was established. Anterior portal was established after localization with a spinal needle and a 7.0 mm cannula was placed here. Diagnostic arthroscopy was then performed with findings as noted above. Attention was 1st directed to the glenohumeral joint. Arthroscopic shaver was used to debride loose cartilage from the humeral head and frayed edges of the anterior and superior labrum. After debridement the remnant labral tissue was stable. The rotator interval was then opened to allow for adequate viewing of the subscapularis. An anterior lateral portal was established after localization of spinal needle and passport cannula was placed. The subscapularis was noted to have full-thickness tear of its upper border with minimal retraction. The footprint of the subscapularis was lightly decorticated. A 2.6 mm double loaded FiberTak suture anchor was then placed in the medial aspect of the upper subscapularis footprint. A scorpion suture Passer was then used to shuttle sutures through the subscapularis in a mattress fashion. After sutures were shuttled arthroscopic knots were tied completing the repair of the subscapularis. Attention was then directed to the subacromial space. A posterior-lateral portal was established as a viewing portal. A complete subacromial bursectomy and debridement of the frayed rotator cuff tissue was performed using the arthroscopic shaver. The anterior infraspinatus tear was retracted medially posterior, but this was easily mobilized able to its footprint. The supraspinatus was completely torn and retracted medial to the glenoid. A tag stitch was placed into the supraspinatus tendon, but there was little excursion of this tissue. Attempts at mobilization were performed by releasing soft tissue superior to the labrum and by releasing the rotator interval. There was already split between the supraspinatus and infraspinatus, and further release of this interval was not necessary. After releases were performed, the supraspinatus could still not be mobilized to its footprint and was deemed to be non repairable. Attention was then directed to repair of the infraspinatus. A small stab incision was placed lateral to the acromion through which a 2.6 mm FiberTak anchor was placed into the medial anterior footprint of the infraspinatus after the footprint had been lightly decorticated with the bone cutting shaver. both sets of sutures were then placed into the infraspinatus tendon using a scorpion suture Passer and then were secured laterally into a 4.5 mm SwiveLock anchor. However, after securing lateral anchor and cutting the sutures, some of the sutures noted loosen from the lateral anchor. At this point decision was made to use a FiberLink luggage tag suture to the anterior aspect of the infraspinatus. This suture was then placed into a 5.5 mm SwiveLock anchor which was placed anterior to the previous lateral anchor. The SwiveLock anchor also incorporated to of the previously placed sutures that had loosened from the initial lateral row anchor. Two FiberTape sutures were then used to do [id number] repair of the interval between the supraspinatus and infraspinatus. After all repairs, the upper subscapularis was noted to be securely repaired to its footprint. The infraspinatus was also completely repaired. The supraspinatus was repaired side to side to the infraspinatus but could not be mobilized for reattachment its humeral head insertion. Attention was then directed to the distal clavicle excision. Soft tissue was removed with the radiofrequency ablator and shaver. Distal clavicle excision was then performed using a 5.0 mm dodie to remove 1 cm of the distal clavicle. A 70 degree scope was used to confirm complete removal of the distal 1 cm of the clavicle.l Arthroscopic instruments and cannulas were removed, and excess fluid was drained. Portal sites were closed with 3-0 nylon simple interrupted sutures and sterile dressing was applied. Left arm was then placed into an abduction sling. The patient was awoken from anesthesia and transferred to the PACU in stable condition. PLAN: 1. Discharged to home day of surgery. 2. Ice for pain and swelling. 3. Tylenol and oxycodone as needed for pain control. 4. Abduction sling at all times except for ROM and showering. -Remove sling several times daily for pendulum exercises finger, wrist, and elbow range of motion. 5. Follow-up in orthopedic clinic in 10-14 days for wound check and suture removal. 6. Will initiate formal physical therapy 5-6 weeks postoperatively per the complex rotator cuff repair protocol.
[2024-02-24] MEDS: MIDAZOLAM HCL 1 MG/ML inj IVP (08:56)
[2024-02-24] MEDS: fentaNYL 100 MCG/2 ML inj IVP (08:56)
--- NOTE | 2024-02-24 08:57 | SUR.PREOP ---
TIME?OUT:?0855 PT/RN/MDA?VERIFICATION?OF?SURGICAL?SITE,?PROCEDURE,?AND?CONSENT OBTAINED?PRIOR?TO?INVASIVE?PROCEDURE.
--- NOTE | 2024-02-24 09:28 | W.PM.NB ---
Nerve Block Nerve Block Time Seen by Provider: 08:52 Date Seen: 02/24/24 Type of block requested by surgeon for post-operative analgesia: supraclavicular Side: left Time out performed: Yes Verification of patient name: Yes Verification of date of : Yes Site marking: site marked Name of person performing procedure: Godfrey Continuous monitoring Was continuous monitoring of O2 sat, B/P, technical specialist cytology, recorded every 15 minutes?: Yes Procedure Checklist: sterile prep, needles and gloves Ultrasound guided. Images saved: Yes Medications given in 5ml increments after negative aspiration: Ropivicaine %: 0.5 mL: 20 Needle gauge: 22 Decadron (mg): 10 Precedex (mcg): 25 Patient tolerated procedure well: Yes Block Charges Block Charge (with Pro Fee): Brachial Plexus Use of Ultrasound Machine for Block: Yes- US Guidance/pain block
--- NOTE | 2024-02-24 09:29 | W.ANESCHARGE ---
Anesthesia Charges Start Date/Time Anesthesia Start Date: 02/24/24 Anesthesia Start Time: 09:31 Stop Date/Time Anesthesia Stop Date: 02/24/24 Anesthesia Stop Time: 13:35 Summary Extremes of Age - Over 70 or under 1: MDA
[2024-02-24] MEDS: CEFAZOLIN 2 GM INJ IVP (09:40)
[2024-02-24] MEDS: EPINEPHrine 1 MG in SODIUM CHLORIDE IRRIG SOLUTION 3,000 ML 9003 MG IRRIGATION (10:15)
[2024-02-24] MEDS: EPINEPHrine 1 MG in SODIUM CHLORIDE IRRIG SOLUTION 3,000 ML 3001 MG IRRIGATION ×16 (10:30→13:13)
--- NOTE | 2024-02-24 10:33 | SUR.OPER ---
PATIENT QUESTIONS ANSWERED SATISFACTORILY PREOPERATIVELY. PATIENT BROUGHT TO OR #3 PER CART FOLLOWING THE BLOCK. Patient positioned supine on OR #3 bed for the intubation.? Perioperative team wrapped the right arm in a neutral position on the pt. abdomen with the drawsheet. Left arm elevated on an IV pole in a padded strap. Final approval of positioning by surgeon. CONTINUOUS IRRIGATION OF THE LEFT SHOULDER WITH MIXTURE OF 3000 NACL AND 1mg OF EPINEPHRINE DURING PROCEDURE.
--- NOTE | 2024-02-24 13:38 | W.ANESCHARGE ---
Anesthesia Charges Start Date/Time Anesthesia Start Date: 02/24/24 Anesthesia Start Time: 09:31 Stop Date/Time Anesthesia Stop Date: 02/24/24 Anesthesia Stop Time: 13:35
--- NOTE | 2024-02-24 13:57 | SUR.PHASEI ---
Patient comfortable without nausea or pain in PACU, Sleepy the first ten minutes then more alert, able to wiggle fingers on left hand in PACU, patient meets discharge criteria from PACU
== END 2024-02-24 15:43 | disposition home or self-care (01) ==
LOC: OR 07:52
PROVIDERS: PCP Family Medicine; Visit Provider Orthopaedic Surgery
PROC: (CPT 29805; principal; 2024-02-24 10:00)
DX: M75.102 Unspecified rotator cuff tear or rupture of left shoulder, not specified as traumatic (principal); M19.012 Primary osteoarthritis, left shoulder; G89.18 Other acute postprocedural pain
CPT/HCPCS: 29827; 29824; 29823; 01630; 64415; 76942; 99100; C1713; J0171; J0330; J0690; J1100; J2250; J2405; J2704; J2795; J3010; J7120; L3670

== ENCOUNTER 2024-08-22 10:15 | Outpatient (RCR) | payer MEDICARE, SELFPAY ==
--- NOTE | 2024-04-05 14:44 | PT.OPEX ---
PT [place] Outpatient Eval PT [facility] Outpatient Eval Start: 04/05/24 10:59 Freq: Status: Active Protocol: Document 04/05/24 11:01 HARRISON (Rec: 04/05/24 14:43 HARRISON [id number]) E-signed By Joseph Sommers DPT Physical Therapy Outpatient Evaluation Insurance Information Recert Due Date 07/04/24 Insurance Name Medicare B Medical Diagnosis Sp left shoulder scope-rcr SAD DCE massive tear 02/24/24 Treating Diagnosis left shoulder pain muscle weakness Referring MD Dr. Sarmiento Subjective Subjective Izabel comes into clinic ~6 weeks post massive RCR with retraction. Per surgical guidelines able to progress to PROM today. Overall has been doing some things to keep the wrist and elbow moving within her restrictions. Feels like pain for the most part is pretty well controlled. Does have trouble sleeping -states still being in recliner and or couch for sleeping. Does state some NT symptoms into hand but states she dealt with prior to surgery as well. no real pain sleeping is the worst Pain Comments 0/10 Current Work Status Retired Precautions Treatment Precautions/Contraindications osteoporosis arthritis Objective Other/Pertinent Objective SHOULDER ,WNL On R PROM L - increased guarding throughout Flexion: L 68 degrees Abduction: L 72 degrees before pain and guarding External Rotation: L lacking 5 degrees elbow extension lacking 7 degrees NECK/SHOULDER MMT: deferred due to surgical precautions Assessment Assessment/Impression POST-OP Patient presents with signs and symptoms consistent with diagnosis of massive L RCR , s /p 6 week post operative. Rehab potential is. Funes impairments include: decreased ROM and strength of the extremity, poor glenohumeral stability limitations with function, al activities such as lifting, reaching, carrying , sleeping . Skilled PT is required to address these funes impairments and to provide and progress with an appropriate home exercise program. Plan of Care Rehabilitation Potential Good Physical Therapy Goals GOALS Pt will be independent with HEP within 20 weeks to allow for independence and continued improvement past formal therapy Patient will demonstrate/ report ability to sleep with losing <1 hours of sleep being interrupted by shoulder pain pain. 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 Coordination/Communication With Referral Source Treatment Plan/Direct Interventions Joint Mobilization,Manual Therapy,Neuromuscular Re-ed, Self-Care/Home Management, Therapeutic Activities, Therapeutic Exercises Frequency/Duration 1-2 visits a week for 14-20 weeks Patient Will Be Discharged From Therapy Completion of LTG(s), Independent w/HEP, Independently Progressing Evaluation Billing Untimed Code Treatment Minutes 20 Complexity Low Certification Information Initial Certification Date 04/05/24 Ending Certification Date 07/04/24 Provider Signature Required Yes Provider Signature Shows Agreement With POC & Medical Necessity Physician NPI Number Write NPI# Here Physician Comment/Change : Physician Signature & Date Requested Please Sign/Date Here
--- OUTSIDE RECORDS SUMMARY | 2024-06-15 10:39 | XMS_ITS | Clinical Summary ---
Author Organization [employer] [facility] Address [place], [place] [address] Care Team Providers Care Electrotyper Name Role Phone Saniya Arzola Primary Care Provider [phone] Allergies Active Allergy Reactions Criticality Noted Date Comments Antihistamines Dizziness 06/06/2008 Medications CENTRUM SILVER TAB take 1 tablet by oral route once daily 0 8 Active FISH OIL 1,200 MG-144 MG-216 MG CAP Once daily 0 8 Active Grape Seed 100 mg capsule Take 1 capsule by mouth. Takes 3 daily 0 1 Active calcium citrate-vitamin d 315 mg-200 unit (CITRACAL + D) 315-200 mg-unit tablet Take 1 tablet by mouth 2 times daily with meals. 0 1 Active famotidine (PEPCID) 20 mg tablet Take 1 tablet by mouth once daily. 0 0 Active alendronate (FOSAMAX) 70 mg tabletIndications :Osteoporosis, unspecified osteoporosis type, unspecified pathological fracture presence Take 1 Tablet (70 mg) by mouth once a week in the morning. Take on empty stomach with full glass of water. Do not lie down for 1 hr. 13 Tablet 3 3 Active Active Problems Problem Noted Date Diagnosed Date MCI (mild cognitive impairment) 06/08/2024 Overview (06/08/2024): MWV 05/2024 SLUMS 22/30, was stressed with sick dog. 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 No further work up needed. Can take aspirin 81mg if no significant GI bleeding RF's Family history of stroke 02/28/2014 Overview (02/28/2014): Sister hemorrhagic stroke age 62 Personal history of colonic polyps 05/05/2012 Overview (09/04/2022): Colonoscopy 04/2012 normal repeat in 5 years Colonoscopy 06/2017 normal repeat in 5 years Colonoscopy 09/2022 angiodyplasia, no polyps, repeat in 7-10 years GERD (gastroesophageal reflux disease) 1 Overview (02/21/2011): EGD 02/2011 reflux Asplenia 06/06/2008 Hereditary spherocytosis 01/01/2007 Urinary tract infection, site not specified 12/05 Osteopenia Overview (04/19/2017): 2007 Dexa 04/2017 osteopenia, repeat 3-5yrs Resolved Problems Problem Noted Date Diagnosed Date Resolved Date Unspecified diseases of bloo d and blood-forming organs 01/01/2007 01/24/2011 Encounters Date Type Department Care Team Description 06/08/2024 11:40 AM HARD TILE SETTER APPRENTICE Office Visit [facility] [address] [place] [address] Saniya Arzola, Follow Up 06/08/2024 Travel 05/18/2024 10:30 AM HARD TILE SETTER APPRENTICE Ancillary Procedure [facility] [address] [place] [address] 05/18/2024 Travel 05/09/2024 10:25 AM HARD TILE SETTER APPRENTICE Office Visit [facility] [address] [facility] [place] [address] Saniya Arzola, DO Medicare ANNUAL (subsequent) Visit (73 year old medicare); Immunization/Inject ion 05/09/2024 Travel from Last 3 Months Immunizations Name Administration Dates Next Due COVID-19 VACCINE SPIKEVAX (M ODERNA 50MCG/0.5ML) 12YO+ PFS 05/09/2024 COVID-19 vaccine (Pfizer-Bio NTech 30mcg/0.3mL) PF, MDV 04/22/2021 Influenza, IIV3 (Age >=3 years) 05/28/2005 Influenza, IIV4 04/07/2017,04/08/2016 Influenza, Inactivated AIIV4 (Age 65+ Years) Preserv Free 03/24/2023,04/23/2022,04/22/2021,04/17 Influenza, Inactivated IIV3 (Age 65+ Years) Preserv Free 05/09/2024,04/13/2019,04/07/2018 Meningococcal Vaccine (Menomune) 04/01/2013 Pneumococcal Poly,23-Valent (Pneumovax) [...] Answer Date Recorded PHQ-2 TOTAL SCORE 0 05/09/2024 Social Connections Answer Date Recorded Do you often feel lonely or isolated from those around you? 0 05/09/2024 Alcohol Use Answer Date Recorded How often do you have a drink containing alcohol ? 3 04/23/2022 How many drinks containing a lcohol do you have on a typical day when you are drinking? 0 04/23/2022 How often do you have five or more drinks on one occasion? 0 04/23/2022 Financial Resource Strain Answer Date R ecorded Difficulty of Paying Living Expenses 3 05/09/2024 Difficulty of Paying Living Expenses Not on file 05/09/2024 Food Insecurity Answer Date Recorded Do you worry your food will run out before you are able to buy more? 1 05/09/2024 Transportation Needs Answer Date Record ed Does lack of transportation keep you from medica l appointments? 1 05/09/2024 Does lack of transportation keep you from work, meetings or getting things that you need? 1 05/09/2024 Housing Stability Answer Date Recorded What is your housing situation today? 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 Not on file Not on file Not o n file Obstetrics History Para Term AB IAB SAB Ectopic Multiple Livin g Live Births 0 0 0 0 0 0 0 0 0 0 Last Filed Vital Signs Vital Sign Reading Time Taken Comments Blood Pressure 134/63 06/08/2024 11:40 AM HARD TILE SETTER APPRENTICE Pulse 67 06/08/2024 11:40 AM HARD TILE SETTER APPRENTICE Temperature 37.1 C (98.8 F) 03/05/2015 1:34 PM CDT Respiratory Rate 16 09/04/2022 10:11 AM HARD TILE SETTER APPRENTICE Oxygen Saturation 96% 06/08/2024 11:40 AM HARD TILE SETTER APPRENTICE Inhaled Oxygen Concentration - - Weight 56.7 kg (125 lb) 06/08/2024 11:40 AM HARD TILE SETTER APPRENTICE Height 151 cm (4' 11.45) 05/09/2024 10:43 AM CS T Body Mass Index 24.87 05/09/2024 10:43 AM HARD TILE SETTER APPRENTICE Plan of Treatment Health Maintenance Due Date Last Done Comments RSV vaccine for adults or (1 - Risk 60-74 years 1-dose series) 2012 Mammogram for age 45-75 05/07/2024 05/07/20 23, 04/23/2022, 04/22/2021, Additional history exists BMI (ht and wt on same day) for age 18+ 05/09/2025 05/09/2024, 02/17/2024, 12/23/2023, Additional history exists Depression screening for age 12+ 05/09/2025 05/09/2024, 05/07/2023, 04/23/2022, Additional history exists Medicare Wellness for age 65+ 05/10/2025, 05/07/2023, 04/23/2022, Additional history exists Tetanus booster 04/14/2027 04/14/2017, [...] for age 50+ Completed 07/02/2020, 05/12/2020, 02/04/2013 COVID-19 vaccine series Completed 05/09/20 24, 04/28/2022, 04/22/2021, Additional history exists Influenza for age 65+ Completed 05/09/2024 , 03/24/2023, 04/23/2022, Additional history exists DEXA/DXA scan for age 65+ Completed 2023, 04/28/2022, 04/09/2017, Additional history exists Procedures Procedure Name Priority Date/Time Associated Diagnosis Comments XR DXA BONE DENSITY 2 SITES AXIAL Routine 05/18/2024 10:45 AM HARD TILE SETTER APPRENTICE Osteoporosis, unspecified osteoporosis type, unspecified pathological fracture presence TSH WITH REFLEX Routine 05/09/2024 11:38 AM HARD TILE SETTER APPRENTICE Concern about memory Other general symptoms and signs VITAMIN B12 Routine 05/09/2024 11:38 AM HARD TILE SETTER APPRENTICE Concern about memory LIPID PANEL W REFLEX MEASURED LDL Routine 05/07/2023 12:08 PM CDT Lipid screening XR MAMMO FABIOLA BILAT SCREEN Routine 05/07/2023 9:51 AM CDT Visit for screening mammogram COLONOSCOPY 09/04/2022 8:50 AM HARD TILE SETTER APPRENTICE ANTI HCV Routine 03/15/2014 7:25 AM CDT Need for hepatitis C screening test from Last 3 Months or Most Recently Relevant to Health Maintenance Results * (ABNORMAL) XR DXA BONE DENSITY 2 SITES AXIAL (05/18/2024 10:45 AM HARD TILE SETTER APPRENTICE) Anatomical Region Laterality Modality Spine, HIPS, HIPL, HIPR Other Impressions 05/23/2024 4:24 PM HARD TILE SETTER APPRENTICE Osteoporosis. Due to the stability of the bone density, continue present medication if indicated. RECOMMENDATIONS: The National Osteoporosis Foundation recommends pharmacologic treatment for patients with T-scores of -2.5 or less, patients with prior history of fragility fractures, or patients with 10-year probability of greater than 3% at hips or greater than 20% of suffering major osteoporotic fractures. Recommend continued optimization of calcium and vitamin D intake through dietary means and/or supplementation and regular exercise. Continue current Alendronate (Fosamax) medication treatment. Consider a drug holiday from bisphosphonates if indicated. Follow up in 2 years. Patricia Albright PA-C [facility] 05/23/2024 Narrative 05/23/2024 4:24 PM HARD TILE SETTER APPRENTICE For Patients: Results are automatically released to your [employer] account once available, in compliance with federal regulations. This means that you may see your results before your provider has had a chance to review them. Please allow 2-3 business days for your provider to comment on the results. XR DXA Bone Mineral Density (BMD) EXAM LOCATION: [address] [address] PATIENT NAME: Izabel Oro DATE OF : 1950 EXAM DATE: 05/18/2024 REQUESTING PROVIDER: Saniya Arzola DO GENDER AT : female HEIGHT: 4' 11.45 (05/09/2024) WEIGHT: 125 lb (05/09/2024) MENOPAUSAL STATUS: Postmenopausal RACE/ETHNICITY: White RISK FACTORS: Height Loss (2 inches or more), Menopause < Age 40, Weight < 127 lbs., and White Race CURRENT MEDICATION FOR BONE LOSS: Alendronate (Fosamax) INDICATION: Follow-up of existing osteoporosis COMPARISON DATE(S): 2021 DXA scans are compared to prior studies for a patient only when the two (or more) studies were performed on the same scanner. It is not possible to compare data generated on one scanner to data from another because there are not standards in DXA equipment. This applies even if the two scanners are made by the same painter bottom. PROCEDURE: Dual-energy x-ray absorptiometry performed with routine technique. Reporting is completed in the form of a T-score. The T-score represents the standard deviation from peak bone mass based on young healthy adult. A Z-score is used for diagnosis in premenopausal women, and for men under the age of 50. FINDINGS: RESULT LUMBAR SPINE L1 - L2 BMD: 0.944 g/cm2 T-Score: - 1.9 Z-Score: + 0.1 Change from prior in 2021: Increase 4.8%. RESULTS FEMUR Left femoral neck BMD: 0.722 g/cm2 T-Score: - 2.3 Z-Score: - 0.3 Change from prior in 2021: Increase 0.7%. Right femoral neck BMD: 0.695 g/cm2 T-Score: - 2.5 Z-Score: - 0.5 Change from prior in 2021: Increase 6.1%. Left hip BMD: 0.745 g/cm2 T-Score: - 2.1 Z-Score: - 0.3 Change from prior in 2021: Increase 2.5%. Right hip BMD: 0.764 g/cm2 T-Score: - 1.9 Z-Score: - 0.2 Change from prior in 2021: Increase 4.2%. WHO criteria: Normal: T-score at or above -1 SD Osteopenia: T-score between -1.1 and -2.4 SD Osteoporosis: T-score at or below -2.[address] [facility] DEXA Final Resu lt * TSH WITH REFLEX (05/09/2024 11:38 AM HARD TILE SETTER APPRENTICE) Pathologist [facility] TSH W/REFLEX TO FT4 2.37 0.40 - 4.50 mIU/L [facility] Blood BLOOD SPECIMEN / Unknown 05/09/2024 11:38 AM HARD TILE SETTER APPRENTICE 05/09/2024 11:39 AM HARD TILE SETTER APPRENTICE [facility] CHEMISTRY Final Resu lt [facility] [address] [place] [address], [facility] [address] [place] [address] * VITAMIN B12 (05/09/2024 11:38 AM HARD TILE SETTER APPRENTICE) [facility] VITAMIN B12 895 200 - 1,100 pg/mL [email or web address] Blood BLOOD SPECIMEN / Unknown 05/09/2024 11:38 AM HARD TILE SETTER APPRENTICE 05/09/2024 11:39 AM HARD TILE SETTER APPRENTICE [facility] CHEMISTRY Final Resu lt [employer] [address] [place] [address], [facility] [address] [place] [address] * (ABNORMAL) LIPID PANEL W REFLEX MEASURED LDL (05/07/2023 12:08 PM CDT) Pathologist [facility] CHOLESTEROL,TOTAL 213(H) 100 - 199 mg/dL 05/07/2023 10:19 PM CDT [facility] Comment: Cholesterol, Total Reference Ranges Desirable <200 mg/dL Borderline 200-239 mg/dL High >=240 mg/dL TRIGLYCERIDES 94 <150 mg/dL 05/07/2023 10:19 PM CDT [facility] HDL CHOLESTEROL 121 >40 mg/dL 10:19 PM CDT [facility] NON-HDL CHOLESTEROL 92 <145 mg/dl 05/07/2023 10:19 PM CDT [facility] CHOL/HDL RATIO 1.76 <4.50 05/07/2023 10:19 PM CDT [facility] LDL CHOLESTEROL 73 <=130 mg/dL 05/07/2023 10:19 PM CDT [facility] VLDL CHOLESTEROL 19 <=30 mg/dL 05/07/2023 10:19 PM CDT [facility] PROVIDER ORDERED STATUS RANDOM 05/07/2023 10:19 PM CDT [facility] Blood BLOOD SPECIMEN / Unknown Venipuncture / Unknown 05/07/2023 12:08 PM CDT 05/07/2023 12:09 PM CDT us Saniya Arzola DO CHEMISTRY Final Resu lt [facility] [address] [place] [address], [place] * XR MAMMO FABIOLA BILAT SCREEN (05/07/2023 9:51 AM CDT) Anatomical Region Laterality Modality BREASTS, Breast Left, Breast Right Bilateral Mammography Impressions 05/08/2023 3:49 PM CDT There is no radiographic evidence for malignancy. Recommend annual mammograms. MAMMOGRAM ASSESSMENT: ACR 1 Negative PATIENTS: You will also receive a letter with your examination results in an easy to read format. If you have questions about your results, please [...] care provider. XR MAMMO FABIOLA BILAT SCREEN [[id number]] CLINICAL HISTORY: This is an asymptomatic 72 y.o. patient. INDICATION FOR EXAM: Mammogram Screening. TECHNIQUE: CC & MLO views were obtained. This study was evaluated with the assistance of Computer-Aided Detection. Breast Tomosynthesis was used in interpretation. COMPARISON FILM: Yes 04/23/22 [facility] 04/22/21 [facility] FINDINGS: The breasts are almost entirely fatty. There are no dominant masses, suspicious micro calcifications or areas of architectural distortion. Saniya Arzola DO MAMMO Final Resu lt * COLONOSCOPY (09/04/2022 8:50 AM HARD TILE SETTER APPRENTICE) 09/04/2022 8:50 AM HARD TILE SETTER APPRENTICE Narrative Transcriptions Parish Barba MD - 09/04/2022 [...] candidate for conscious sedation. The endoscope [id number] was passed through the anus andadvanced to [...] 8:50 AM Procedure Code(s): --- Professional --- 21845, Colonoscopy, flexible; diagnostic, including collection of specimen(s) bybrushing or washing, when performed (separateprocedure) Diagnosis Code(s): --- Professional --- Z86.010, Personal history of colonicpolyps K55.20, Angiodysplasia of colon without hemorrhage CPT copyright 2020 [employer]. All rights reserved. The codes documented in this report are preliminary and upon him coder reviewmay be revised to meet current compliance requirements. Scope In: 9:33:26 AM Scope Withdrawal Time 0 hours 12 minutes 53 seconds Scope Out: 9:51:23 AM us Parish Barba MD PROCEDURE ORD Final Res ult * ANTI HCV [62566.2] (03/15/2014 7:25 AM CDT) HEPATITIS C ANTIBODY Non-Reacti ve Non-Reacti ve 03/15/2014 3:39 PM CDT [facility] Blood specimen (specimen) BLOOD SPECIMEN / Unknown Venipuncture / Unknown 03/15/2014 7:25 AM CDT 03/15/2014 7:25 AM CDT Narrative [facility] - 03/15/2014 3:39 PM CDT Antibodies to HCV not detected; does not exclude the possibility of exposure to HCV. us Saniya Arzola DO SEND OUTS Final Resu lt [facility] [address] [place] [address], from Last 3 Months or Most Recently Relevant to Health Maintenance Insurance [facility] MEDICARE ADVANTAGE MR Advance Directives Documents on File Type Date Recorded Patient Test Rack Operator Expl anation Healthcare Directive 04/14/2019 1:39 PM 1 Care Teams Electrotyper Relationship Specialty Start Date End Date Saniya Arzola DO [address] [place] [address] PCP - General Family Practice 07/04/13
--- NOTE | 2024-07-15 09:57 | PT.OPDNX ---
PT [facility] Outpatient Daily Note PT [facility] Out[facility] Daily Note Start: 04/05/24 10:59 Freq: Status: Active Protocol: Document 07/11/24 07:33 TOÑO (Rec: 07/11/24 13:00 TOÑO [id number]) E-signed By Ling Martínez DPT PT OP Daily Progress Note Visit Information Note Type Daily Note Visit Number [id number] Insurance Authorized Visits - Physician Authorized Visits - Insurance Information Recert Due Date 10/07/24 Insurance Name Medicare B Medical Diagnosis Sp left shoulder scope-rcr SAD DCE massive tear 02/24/24 Treating Diagnosis left shoulder pain muscle weakness Referring MD Dr. Sarmiento Subjective Preferred Name LAN Torres Patient reports doing well. She continues to work on her home exercises regularly. She denies any flare ups of pain/ soreness over the last couple of weeks. Not needing pain meds or ice. HEP is going well. She continues to work on her ROM, stretching, reaching with the neha, wall slides, cane exercises. Feels she is noticing some improvement with the supine reaching exercises with the stick - able to hold her arm up for a bit without the support of the stick. Still very limited with trying to use L shoulder for daily activities. Trying to use L shoulder/UE more for lower level activities in the kitchen. Date of Last Physician Visit 05/19/24 Date of Surgery (If applicable) 02/24/24 Precautions Treatment Precautions/Contraindications HX: osteoporosis, arthritis Home Exercise Home Exercise Comments codmans supine AAROM flex table slide flex, circles, alphabet neha flex, scap, circles wall slide flex, circles 04/28/24: [id number] UPDATED Objective Other/Pertinent Objective Continue with P/AA/AROM Light resistance and RC strengthening in 4 weeks (Jun 16) No lifting over 1-2#, No WB on L UE. Patient Instructed in Risks/Benefits Yes Therapeutic Exercise Therapeutic Exercise Minutes (minutes) 40 Therapeutic Exercise: To Restore Review of HEP Functional Status UBE x 5 min, fwd/retro, mid resistance L shoulder codmans neha flex, circles CW/CCW wall slide - bilaterally - flex, circles CW/CCW 2 x 10 each lat pull down - 4 plates - 2 x 20. PT assist as needed, focus on shoulder mechanics, stretching into flex seated ball squeezes - bilateral UE press down with 5 second hold x 10, bilateral side/side squeeze with 5 second hold x 10 nustep x 6 min, L4 supine L shoulder P/AAROM, stretching, IR/ER isotonics/ isometrics. Oscillation for relaxation, improved ROM. Scap mobs to improve ROM. Supine AAROM flex 0-90, circles CW/CCW, CO reach with tricep ext - with PT assist as needed. seated hands folded or thumbs hooked, lift into flex x 10 Treatment Minutes Timed Code Treatment Minutes 40 Total Treatment Time 40 Billing Units Therapeutic Exercise Units 3 Assessment/Impression Assessment/Impression Patient is s/p L shoulder massive RCR 02/24/24. Patient has been working on her HEP the last 3 weeks, continues to get them in regularly and is motivated to improve. Pain has been minimal to none. Not needing pain meds or ice. Patient continues to do ok with P/AAROM, but AROM remains significantly limited. Pulleys and wall slides are going fine. Patient continues to need R UE to assist L UE with wall slides - she is able to achieve a short range without assist and then needs R UE to assist. There has been minimal to no improvements with L shoulder AROM since coming out of the sling, no functional reaching or movements away from the body with L shoulder/UE. There has been some slight improvement with supine AA/ AROM 0-90 degrees but still needing some assist with this motion and patient fatigues very quickly. MD follow up note from 05/19, stated concern with limited L shoulder motion with hx of massive tear and poor tissue quality, concerning for possible failure of the repair . Continued to review current status and slow/limited progress with patient, ongoing concerns with her lack of progress with AROM. Patient expresses understanding but remains very motivated to get better, improve. She has been working hard on her HEP, pulleys, AAROM exercises. Plan to continue with PT to maximize her L shoulder ROM, strength, function. She has follow up with MD in Aug to assess her progress and review her options at that time. Recheck in PT next week. Continue with PT POC. Patient has follow up scheduled with MD on Aug 25. Plan to continue with PT to maximize progress with L shoulder ROM, strength, and return to functional use of L shoulder/ UE as able after L RCR surgery . Recert note sent to MD for signature. PT goals updated and are ongoing. Plan of Care Physical Therapy Goals 1. Decrease/maintain L shoulder pain at less than/ equal to 3/10 with daily activities and with the progression of PT activities over the next 6-8 weeks. 2. Improve L shoulder PROM to WFL over the next 4-6 weeks to prepare for return to functional use of L shoulder/UE. 3. Improve L shoulder AROM to WFL over the next 10-12 weeks for return to functional use of L shoulder/ UE with daily/housework activities. 4. Improve L shoulder/UE strength over the next 12-16 weeks for return to functional use of L shoulder/UE with daily/ housework activities. 5. Patient will be I with HEP within 16 weeks for progression toward above goals, ongoing self management of pain/sx, ongoing self improvements in ROM/strength/function, and for return to functional use of L shoulder/UE with daily/ housework activities. Daily Plan of Care Continue per POC Recertification Information Recertification Start Date 07/11/24 Recertification Due Date 10/07/24 Reasons to Continue Skilled Therapy see above note Rehabilitation Potential fair, guarded with slow progress after RCR surgery on 02/24/24 Continued Plan of Care and Interventions 1-2x/week Provider Signature Shows Agreement With POC & Medical Necessity Physician Comment/Change Comment or Changes Physician NPI Number #
== END 2024-12-20 23:59 | disposition home or self-care (01) ==
PROVIDERS: PCP Family Medicine; Visit Provider Orthopaedic Surgery Sports Medicine
DX: Z48.89 Encounter for other specified surgical aftercare (principal); M25.512 Pain in left shoulder; Z51.89 Encounter for other specified aftercare
CPT/HCPCS: 97110; 97140; 97161

== ENCOUNTER 2025-01-02 08:36 | Outpatient (CLI) | payer MEDICARE, SELFPAY ==
--- NOTE | 2025-01-02 09:15 | CRLHL7_ITS ---
For Patients: As a result of the Century Cures Act, medical imaging exams and procedure reports are released immediately into your electronic medical record. You may view this report before your referring provider. If you have questions, please contact your health care provider. INDICATION: Follow-up pancreatic cyst TECHNIQUE: 1.5 T MRI of the abdomen was performed with pre and postcontrast T1 weighted imaging; T2 weighted imaging; diffusion weighted imaging; in and out of phase imaging; 3D MRCP imaging was obtained. 15 mL Dotarem IV. COMPARISON: CT abdomen pelvis 04/02/2023 FINDINGS: Lungs: The lung bases are clear. No pleural or pericardial effusion. Liver: Homogeneous liver parenchyma. No hepatic masses. Biliary tree and gallbladder: No intra or extrahepatic biliary dilation. Prior cholecystectomy Spleen: Prior splenectomy Pancreas: Normal pancreatic parenchyma. No pancreatic masses. No pancreatic duct dilation. Bilobed T2 hyperintense cystic lesion at the junction of the body and tail measuring 1.2 cm (01/22). This previously measured 0.[address], although direct comparison is difficult due to differences in technique. This lesion likely communicates with the main pancreatic duct. Adrenal glands: Unremarkable. Kidneys and ureters: No renal masses or hydronephrosis. Multiple small left parapelvic cysts. Right lower pole cyst measuring 1.4 cm. GI tract: No evidence of obstruction or inflammation. Vasculature: The IVC and aorta are patent. No abdominal aortic aneurysm. Lymph nodes: No lymphadenopathy. Abdominal wall: Unremarkable Bones: Degenerative change of the imaged spine. IMPRESSION: Bilobed pancreatic body/tail cystic lesion measuring 1.2 cm, may be slightly increased compared to prior CT, and likely represents a side branch IPMN. Consider follow-up MRI in 1 year to assess stability. Dictated by Emerita Sanabria MD @ 01/03/2025 9:57:20 AM (Electronically Signed)
--- OUTSIDE RECORDS SUMMARY | 2025-01-03 02:07 | XMS_ITS | Clinical Summary ---
Author Organization [facility] Address [address] [place] [id number] Care Team Providers Care Shell Fisherman Name Role Phone SandraSaniya woods Marva KERR Primary Care Provider [phone] Allergies Active Allergy Reactions Criticality Noted Date [...] unspecified osteoporosis type, unspecified pathological fracture presence TAKE 1 TAB ONCE A WEEK IN MORNING ON EMPTY STOMACH WITH FULL GLASS OF WATER. DO NOT LIE DOWN X1 HOUR 13 Tablet 2 4 Active Active Problems Problem Noted Date Diagnosed Date MCI (mild cognitive impairment) 06/08/2024 Overview (06/08/2024): MWV 05/2024 SLUMS 22/30, was stressed with sick dog. 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 No further work up needed. Can [...] Encounters Date Type Department Care Team Description 11/24/2024 Telephone [facility] [address] [place] [address] Saniya Arzola DO Referral (Financial Services Internship) 11/18/2024 Telephone [facility] [address] [place] [address] Saniya Arzola DO Screening from Last 3 Months Immunizations Immunization Administration Dates Next Due COVID-19 VACCINE SPIKEVAX (M ODERNA 50MCG/0.5ML) 12YO+ PFS 05/09/2024 COVID-19 vaccine (UiTV-Bio NTech 30mcg/0.3mL) PF, MDV 04/22/2021 Influenza, IIV3 [...] is your housing situation today? 1 05/09/2024 Utilities Answer Date Recorded Do you have trouble paying f or utilities (for example, heat, electricity, water, phone)? 1 05/09/2024 Comments No Sex and Gender Information Value Date Recorded Sex Assigned at Not on file Legal Sex Female 5:24 AM MAIL DELIVERER Gender Identity Not on file Sexual Orientation [...] Comments Blood Pressure 134/63 06/08/2024 11:40 AM MAIL DELIVERER Pulse 67 06/08/2024 11:40 AM MAIL DELIVERER Temperature 37.1 C (98.8 F) 03/05/2015 1:34 PM CDT Respiratory Rate 16 09/04/2022 10:11 AM MAIL DELIVERER Oxygen Saturation 96% 06/08/2024 11:40 AM MAIL DELIVERER Inhaled Oxygen Concentration - - Weight 56.7 kg (125 lb) 06/08/2024 11:40 AM MAIL DELIVERER Height 151 cm (4' 11.45) 05/09/2024 10:43 AM CS T Body Mass Index 24.87 05/09/2024 10:43 AM MAIL DELIVERER Plan of Treatment Health Maintenance Due Date Last Done Comments RSV vaccine for adults or (1 - Risk 60-74 years 1-dose series) 2012 Mammogram for age 45-75 05/07/2024 05/07/20, 04/23/2022, 04/22/2021, Additional history exists COVID-19 vaccine series ( season) 2024 05/09/2024, 04/28/2022, 04/22/2021, Additional history exists BMI (ht and wt on same day) for age 18+ 05/09/2025 05/09/2024, 02/17/2024, 12/23/2023, Additional history exists Depression screening for age 12+ 05/09/2025 05/09/2024, 05/07/2023, 04/23/2022, Additional history exists Medicare Wellness for age 65+ 05/10/2025 05/09/2024, 05/07/2023, 04/23/2022, Additional history exists Tetanus booster 04/14/2027 04/14/2017, 12/2006, 07/21/1997 Lipids for age 45-75 05/07/2028 05/07/2023, 04/07/2018, 03/21/2015, Additional history exists Colonoscopy through age 75 09/11/202909/11, 09/04/2022, 06/12/2017, Additional history exists Tdap Completed 03/11/2007 Hepatitis C screening for age 18-79 Completed 03/15/2014 Pneumococcal series for age 50+ Completed 04/07/2018, 04/01/2013, 02/04/2013, Additional history exists Zoster (shingles) series for age 50+ Completed 07/02/2020, 05/12/2020, 02/04/2013 Influenza Vaccine Completed 05/09/2024, , 04/23/2022, Additional history exists DEXA/DXA scan for age 65+ Completed 2023, 04/28/2022, 04/09/2017, Additional history exists Hepatitis B series for 19+ Aged Out N o longer eligible based on patient's age to complete this topic Procedures Procedure Name Priority Date/Time Associated Diagnosis Comments AMB CONSULT TO GASTROENTEROLOGY Routine 12/16/2024 7:06 PM CDT Pancreatic cyst (HC) XR DXA BONE DENSITY 2 SITES AXIAL Routine 05/18/2024 10:45 AM MAIL DELIVERER Osteoporosis, unspecified osteoporosis type, unspecified pathological fracture presence LIPID PANEL W REFLEX MEASURED LDL Routine 05/07/2023 12:08 PM CDT Lipid screening XR MAMMO FABIOLA BILAT SCREEN Routine 05/07/2023 9:51 AM CDT Visit for screening mammogram COLONOSCOPY 09/04/2022 8:50 AM MAIL DELIVERER ANTI HCV Routine 03/15/2014 7:25 AM CDT Need for hepatitis C screening test from Last 3 Months or Most Recently Relevant to Health Maintenance Results * (ABNORMAL) XR DXA BONE DENSITY 2 SITES AXIAL (05/18/2024 10:45 AM MAIL DELIVERER) Anatomical Region Laterality Modality Spine, HIPS, HIPL, HIPR Other Impressions 05/23/2024 4:24 PM MAIL DELIVERER Osteoporosis. Due to the stability of the [...] up in 2 years. Patricia Albright PA-C [facility] 05/23/2024 Narrative 05/23/2024 4:24 PM MAIL DELIVERER For Patients: Results are automatically released to your [facility] account once available, in compliance with federal regulations. This means that you may see your results before your provider has had a chance to review them. Please allow 2-3 business days for your provider to comment on the results. XR DXA Bone Mineral Density (BMD) EXAM LOCATION: [facility] [address] [facility] [address] PATIENT NAME: Izabel Oro DATE OF : [...] two scanners are made by the same wood buffer. PROCEDURE: Dual-energy x-ray absorptiometry performed with routine [...] Osteoporosis: T-score at or below -2.5 SD Saniya Arzola DO DEXA Final Resu lt * (ABNORMAL) LIPID PANEL W REFLEX MEASURED LDL (05/07/2023 12:08 PM CDT) [facility] CHOLESTEROL,TOTAL 213(H) 100 - 199 mg/dL 05/07/2023 10:19 PM CDT [facility] Comment: Cholesterol, Total Reference Ranges Desirable <200 mg/dL Borderline 200-239 mg/dL High >=240 mg/dL TRIGLYCERIDES 94 <150 mg/dL 05/07/2023 10:19 PM CDT [facility] HDL CHOLESTEROL 121 >40 mg/dL 10:19 PM CDT [facility] NON-HDL CHOLESTEROL 92 <145 mg/dl 05/07/2023 10:19 PM CDT [facility] CHOL/HDL RATIO 1.76 <4.50 05/07/2023 10:19 PM CDT [facility] LDL CHOLESTEROL 73 <=130 mg/dL 05/07/2023 10:19 PM CDT [facility] VLDL CHOLESTEROL 19 <=30 mg/dL 05/07/2023 10:19 PM CDT [facility] PROVIDER ORDERED STATUS RANDOM 05/07/2023 10:19 PM CDT [facility] Blood BLOOD SPECIMEN / Unknown Venipuncture / Unknown 05/07/2023 12:08 PM CDT 05/07/2023 12:09 PM CDT us Saniya Arzola DO CHEMISTRY Final Resu lt [facility] [address] [place] [address], [place] * XR MAMMO FABIOLA BILAT SCREEN [...] care provider. XR MAMMO FABIOLA BILAT SCREEN [[id number]] CLINICAL HISTORY: This is an asymptomatic 72 [...] micro calcifications or areas of architectural distortion. us Saniya Arzola DO MAMMO Final Resu lt * COLONOSCOPY (09/04/2022 8:50 AM MAIL DELIVERER) 09/04/2022 8:50 AM MAIL DELIVERER Narrative Transcriptions Parish Barba MD - 09/04/2022 [...] candidate for conscious sedation. The endoscope [id number] was passed through the anus andadvanced to [...] 8:50 AM Procedure Code(s): --- Professional --- 82824, Colonoscopy, flexible; diagnostic, including collection of specimen(s) bybrushing or washing, when performed (separateprocedure) Diagnosis Code(s): --- Professional --- Z86.010, Personal history of colonicpolyps K55.20, Angiodysplasia of colon without hemorrhage CPT copyright 2020 [employer]. All rights reserved. The codes documented in this report are preliminary and upon senior front end engineer reviewmay be revised to meet current compliance requirements. Scope In: 9:33:26 AM Scope Withdrawal Time 0 hours 12 minutes 53 seconds Scope Out: 9:51:23 AM us Parish Barba MD PROCEDURE ORD Final Res ult * ANTI HCV [66781.2] (03/15/2014 7:25 AM CDT) HEPATITIS C ANTIBODY Non-Reacti ve Non-Reacti ve 03/15/2014 3:39 PM CDT [facility] Blood specimen (specimen) BLOOD SPECIMEN / Unknown Venipuncture / Unknown 03/15/2014 7:25 AM CDT 03/15/2014 7:25 AM CDT Narrative [facility] - 03/15/2014 3:39 PM CDT Antibodies to HCV not detected; does not exclude the possibility of exposure to HCV. us Saniya Arzola DO SEND OUTS Final Resu lt [facility] [address] [place] [address], [place] from Last 3 Months or Most Recently Relevant to Health Maintenance Insurance [facility] MEDICARE ADVANTAGE MR Advance Directives Documents on File Type Date Recorded Patient Blender Operator Expl anation Healthcare Directive 04/14/2019 1:39 PM 1 Care Teams Shell Fisherman Relationship Specialty Start Date End Date Saniya Arzola DO [address] [place] [address] PCP - General Family Practice 07/04/13
== END 2025-01-02 08:37 | disposition home or self-care (01) ==
LOC: MRI 08:37
PROVIDERS: PCP Family Medicine; Visit Provider Internal Medicine
DX: K86.2 Cyst of pancreas (principal)
CPT/HCPCS: 74183; A9575